=== PATIENT | female | born 2000 | race African-American/Black ===

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

== ENCOUNTER 2022-09-14 11:04 | Emergency (ER) | payer MEDICAID, OTHER ==
[~2022-09-14] VITALS: Ht 172.7 cm; Wt 55.0 kg
[2022-09-14 11:08] VITALS: BP 108/83; RESP 18; TEMP 98.3; O2SAT 99
[2022-09-14 11:09] VITALS: PULSE 77
[2022-09-14 14:21] LABS: CLARITY URINE CLOUDY (CLEAR); COLOR URINE YELLOW (YELLOW); GLUCOSE URINE NEGATIVE (NEGATIVE); KETONES URINE NEGATIVE (NEGATIVE); LEUKOCYTE ESTERASE URINE TRACE (NEGATIVE); NITRITE URINE NEGATIVE (NEGATIVE); OCCULT BLOOD URINE NEGATIVE (NEGATIVE); PH URINE 5.5 (4.5-8.0); PROTEIN URINE NEGATIVE (NEGATIVE); SPECIFIC GRAVITY URINE 1.029 (1.005-1.030); UROBILINOGEN URINE 0.2 E.U./dL (0.2-1.0)
[2022-09-14 15:22] LABS: MUCUS URINE TRACE /lpf (< = 2+); SQUAMOUS EPITHELIAL CELL URINE 2+ /lpf (RARE/1+)
[2022-09-14 15:23] LABS: BACTERIA URINE 1+; RBC URINE 0-2 /hpf (0-2)
== END 2022-09-14 14:37 | disposition home or self-care (01) ==
LOC: ER 12:19
DX: A64 Unspecified sexually transmitted disease (principal); M79.644 Pain in right finger(s); Z88.1 Allergy status to other antibiotic agents
CPT/HCPCS: 81003; 81025; 87491; 87591; 99283

== ENCOUNTER 2023-03-29 15:52 | Emergency (ER) | payer MEDICAID, OTHER ==
[~2023-03-29] VITALS: Ht 172.7 cm; Wt 54.4 kg
[2023-03-29 16:01] VITALS: BP 120/80; PULSE 87; RESP 18; TEMP 98.3; O2SAT 95
== END 2023-03-29 18:49 | disposition left against medical advice (07) ==
LOC: ER 15:52
DX: F41.9 Anxiety disorder, unspecified (principal); R06.02 Shortness of breath; K21.9 Gastro-esophageal reflux disease without esophagitis; Z88.8 Allergy status to other drugs, medicaments and biological substances
CPT/HCPCS: 99283